=== PATIENT | female | born 1975 | race Caucasian/White ===

== ENCOUNTER 2017-04-12 15:06 | Emergency (ER) | payer MEDICAID ==
--- NOTE | 2017-04-12 18:43 | RADIOLOGY REPORT (SQ) ---
EXAM DESCRIPTION: MRI CERVICAL SPINE WITHOUT COMPLETED DATE/TIME: 04/12/2017 6:31 pm REASON FOR STUDY: fall/hands numb COMPARISON: None. TECHNIQUE: Sagittal and Axial imaging includes T1, T2, STIR and gradient echo sequences. LIMITATIONS: None. FINDINGS: ALIGNMENT: Normal. VERTEBRAE: Intact. BONE MARROW: Reactive endplate changes C4-5 and C6-7. DISCS: Loss of height and T2 signal C4-5, C5-6, C6-7. HARDWARE: None CORD AND BASE OF BRAIN: Base of the brain is unremarkable. There is focal high signal in the cord at the level of C5 best seen on STIR and T2 weighted images. This is likely cord contusion related to trauma. Demyelinating process is in the differential. SOFT TISSUES: No soft tissue masses. C1-C2: No significant spinal stenosis. C2-C3: No significant spinal stenosis or exit foraminal stenosis. C3-C4: No significant spinal stenosis or exit foraminal stenosis. C4-C5: Disc osteophyte complex with central on lateral components. Flattening of the anterior thecal sac. Moderate narrowing of the exit foramina moderate central canal stenosis. C5-C6: Disc osteophyte complex with marked flattening of the anterior thecal sac and obliteration of the CSF spaces. Moderate narrowing of the exit foramina and moderate central canal stenosis. C6-C7: Marked disc osteophyte complex with flattening of the anterior thecal sac and moderate narrowi ng of the exit foramina. Moderate central canal stenosis. C7-T1: No significant spinal stenosis or exit foraminal stenosis. UPPER THORACIC: Incompletely imaged. No significant spinal stenosis or exit foraminal stenosis. OTHER: No other significant finding. IMPRESSION: Exit foraminal narrowing and central canal stenosis at C4-5, C5-6, C6-7. At the level of C5 there is focal high signal in the cord on STIR and T2 weighted images likely relat ed to cord contusion. Demyelinating process in the differential. TECHNICAL DOCUMENTATION: JOB ID: [id number]- All Rights Reserved
--- NOTE | 2017-04-12 19:10 | ER Document Report ---
ED Medical Screen (RME) - General Chief Complaint: Fall Stated Complaint: FALL NECK PAIN Time Seen by Provider: 04/12/17 16:52 Notes: Patient fell today and hit the back of her neck on some stairs. She complains of bilateral hand numbness. MRI is consistent with possible cord contusion. Patient been placed in c-collar. TRAVEL OUTSIDE OF THE [place] IN LAST 30 DAYS: No - Related Data Allergies/Adverse Reactions: No Known Allergies Allergy (Verified 04/12/17 16:46) Past Medical History - Social History Chew tobacco use (# tins/day): No Frequency of alcohol use: None Drug Abuse: None Renal/ Medical History: Denies: Hx Peritoneal Dialysis Past Surgical History: Reports: Hx Section - x 3, Hx Hysterectomy Physical Exam - Vital signs Vitals: Temp Pulse Resp BP Pulse Ox 98.9 F 94 18 135/88 H 97 04/12/17 15:16 04/12/17 15:16 04/12/17 15:16 04/12/17 15:16 04/12/17 15:16 Course - Vital Signs Vital signs: Temp Pulse Resp BP Pulse Ox 98.9 F 94 18 135/88 H 97 04/12/17 15:16 04/12/17 15:16 04/12/17 15:16 04/12/17 15:16 04/12/17 15:16
[2017-04-12] MEDS ORDERED: MORPHINE SULFATE 10 MG/ML INJ IV ONE (20:13)
[2017-04-12] MEDS ORDERED: KETOROLAC TROMETHAMINE INJ/PF 30 MG/1 ML SDV IV ONE (20:13)
--- NOTE | 2017-04-12 20:22 | ER Document Report ---
ED Fall - General Chief Complaint: Fall Stated Complaint: FALL NECK PAIN Time Seen by Provider: 04/12/17 16:52 Notes: The patient is a 41-year-old female who presents after she slipped down 2 stairs and landed directly on her neck. Immediately after the injury, she began to feel numbness and tingling in her bilateral arms. She was feeling weakness in her bilateral arms after the fall that has now improved. She denies LOC, head injury, chest pain, change in bowel or bladder, saddle anesthesia, rash, nausea, vomiting or open wounds. TRAVEL OUTSIDE OF THE [place] IN LAST 30 DAYS: No - Related data Allergies/Adverse Reactions: No Known Allergies Allergy (Verified 04/12/17 16:46) Past Medical History - General Information source: Patient - Social History Smoking Status: Current Every Day Smoker Chew tobacco use (# tins/day): No Frequency of alcohol use: None Drug Abuse: None Family History: Reviewed & Not Pertinent Patient has suicidal ideation: No Patient has homicidal ideation: No Renal/ Medical History: Denies: Hx Peritoneal Dialysis Past Surgical History: Reports: Hx Section - x 3, Hx Hysterectomy Review of Systems - Review of Systems Notes: REVIEW OF SYSTEMS: CONSTITUTIONAL: -fevers, -chills EENT: -eye pain, -difficulty swallowing, -nasal congestion CARDIOVASCULAR:-chest pain, -syncope. RESPIRATORY: -cough, -SOB GASTROINTESTINAL: -abdominal pain, - nausea, -vomiting, -diarrhea GENITOURINARY: -dysuria, -hematuria MUSCULOSKELETAL: -back pain, +neck pain SKIN: -rash or skin lesions. HEMATOLOGIC: -easy bruising or bleeding. LYMPHATIC: -swollen, enlarged glands. NEUROLOGICAL: -altered mental status or loss of consciousness, -headache, + numbness in bilateral arms PSYCHIATRIC: -anxiety, -depression. ALL OTHER SYSTEMS REVIEWED AND NEGATIVE. Physical Exam - Vital signs Vitals: Temp Pulse Resp BP Pulse Ox 98.9 F 94 18 135/88 H 97 04/12/17 15:16 04/12/17 15:16 04/12/17 15:16 04/12/17 15:16 04/12/17 15:16 - Notes Notes: PHYSICAL EXAMINATION: GENERAL: Well-appearing, well-nourished and in no acute distress. HEAD: Atraumatic, normocephalic. EYES: Pupils equal round and reactive to light, extraocular movements intact, sclera anicteric, conjunctiva are normal. ENT: nares patent, oropharynx clear without exudates. Moist mucous membranes. NECK: in C-collar. Midline tenderness. Supple without lymphadenopathy LUNGS: Breath sounds clear to auscultation bilaterally and equal. No wheezes rales or rhonchi. HEART: Regular rate and rhythm without murmurs ABDOMEN: Soft, nontender, normoactive bowel sounds. No guarding, no rebound. No masses appreciated. EXTREMITIES: Normal range of motion, no pitting or edema. No cyanosis. NEUROLOGICAL: Cranial nerves grossly intact. Normal speech, normal gait. 5/5 strength in all 4 extremities. Numbness is bilateral lateral arms. PSYCH: Normal mood, normal affect. SKIN: Warm, Dry, normal turgor, no rashes or lesions noted. Course - Re-evaluation Re-evalutation: 04/12/17 20:23 Pt with spinal cord contusion after fall at level of C5. She has no motor deficits, but does have sensory deficits. 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 Spoke to Dr. [facility] ([facility]) and he recommends speaking to Spine Surgery. 04/12/17 20:[address] Loyd ([facility]). No further recommendations at this time, but will consult [facility] Wilson has accepted patient. Arranging transportation. - Vital Signs Vital signs: Temp Pulse Resp BP Pulse Ox 98.9 F 94 18 135/88 H 97 04/12/17 15:16 04/12/17 15:16 04/12/17 15:16 04/12/17 15:16 04/12/17 15:16 - Diagnostic Test Radiology reviewed: Image reviewed, Reports reviewed Radiology results interpreted by me: MRI C-spine: Exit foraminal narrowing and central canal stenosis at C4-5, C5-6, C6-7. At the level of C5 there is focal high signal in the cord on STIR and T2 weighted images likely related to cord contusion. Demyelinating process in the differential. Discharge - Discharge Clinical Impression: Spinal cord contusion Condition: Stable Disposition: [facility]
[2017-04-12 21:01] LABS: ABSOLUTE BASOPHILS # (AUTO) 0.1 10^3/uL (0.0-0.2); ABSOLUTE EOSINOPHILS # (AUTO) 0.2 10^3/uL (0.0-0.6); ABSOLUTE LYMPHOCYTES (AUTO) 2.1 10^3/uL (0.5-4.7); ABSOLUTE MONOCYTES (AUTO) 0.4 10^3/uL (0.1-1.4); ABSOLUTE NEUT (AUTO) 5.9 10^3/uL (1.7-8.2); BASOPHILS % (AUTO) 1.2 % (0-2); HEMATOCRIT 39.6 % (36.0-47.0); HEMOGLOBIN 13.3 g/dL (12.0-15.5); HGB HCT DIFFERENCE 0.3; LYMPHOCYTES % (AUTO) 24.1 % (13-45); MEAN CORPUSCULAR HEMOGLOBIN 31.2 pg (27.0-33.4); MEAN CORPUSCULAR HGB CONC 33.7 g/dL (32.0-36.0); MEAN CORPUSCULAR VOLUME 93 fl (80-97); MONOCYTES % (AUTO) 4.7 % (3-13); RED BLOOD COUNT 4.28 10^6/uL (3.72-5.28); RED CELL DISTRIBUTION WIDTH 14.2 % (11.5-14.0); WHITE BLOOD COUNT 8.7 10^3/uL (4.0-10.5)
[2017-04-12 21:04] VITALS: BP 147/86
[2017-04-12 21:18] LABS: ALANINE AMINOTRANSFERASE 41 U/L (9-52); ALBUMIN 4.6 g/dL (3.5-5.0); ALKALINE PHOSPHATASE 81 U/L (38-126); ANION GAP 13 (5-19); ASPARTATE AMINO TRANSFERASE 24 U/L (14-36); BILIRUBIN,DIRECT 0.4 mg/dL (0.0-0.4); BILIRUBIN,TOTAL 0.6 mg/dL (0.2-1.3); BLOOD UREA NITROGEN 10 mg/dL (7-20); CALCIUM 9.7 mg/dL (8.4-10.2); CARBON DIOXIDE 24 mmol/L (22-30); CHLORIDE 106 mmol/L (98-107); CREATININE RESULT 0.72 mg/dL (0.52-1.25); GLUCOSE 87 mg/dL (75-110); POTASSIUM 4.2 mmol/L (3.6-5.0); SODIUM 142.7 mmol/L (137-145); TOTAL PROTEIN 7.7 g/dL (6.3-8.2)
== END 2017-04-12 21:31 | disposition short-term general hospital (02) ==
LOC: ER 15:06
DX: S14.155A Other incomplete lesion at C5 level of cervical spinal cord, initial encounter (principal); M54.2 Cervicalgia; M79.601 Pain in right arm; M79.602 Pain in left arm; F17.200 Nicotine dependence, unspecified, uncomplicated; W19.XXXA Unspecified fall, initial encounter
CPT/HCPCS: 99285; 96374; 96375; 36415; 85025; 80053; 72141; L0120; J1885; J2270

== ENCOUNTER 2017-04-18 20:05 | Emergency (ER) | payer MEDICAID ==
[2017-04-18] MEDS ORDERED: MORPHINE SULFATE 10 MG/ML INJ IM ONE (20:27)
[2017-04-18] MEDS ORDERED: DIAZEPAM INJ 10 MG/2 ML DISP.SYRIN IM ONE (20:28)
--- NOTE | 2017-04-18 20:30 | ER Document Report ---
ED Medical Screen (RME) - General Chief Complaint: Neck Problem Stated Complaint: NECK PAIN Time Seen by Provider: 04/18/17 20:22 Mode of Arrival: Wheelchair Information source: Patient TRAVEL OUTSIDE OF THE [place] IN LAST 30 DAYS: No - HPI Patient complains to provider of: Neck pain Notes: 04/18/17 20:29 Patient is a 41-year-old female presenting to the emergency room complaining of neck pain, she had a recent cervical fusion, after trauma which caused a cord compression, she is still wearing a c-collar, and only takes it off for dressing changes, she is unaware of any infectious process going on with her wounds, however she has not visualized them herself, she does report having subjective fever with a temperature of 99 5 in triage area, she states that she has had some vomiting and has been unable to tolerate her pain medication - Related Data Allergies/Adverse Reactions: No Known Allergies Allergy (Verified 04/18/17 20:10) Past Medical History - Social History Chew tobacco use (# tins/day): No Frequency of alcohol use: None Drug Abuse: None Renal/ Medical History: Denies: Hx Peritoneal Dialysis Past Surgical History: Reports: Hx Section - x 3, Hx Hysterectomy, Hx Orthopedic Surgery - cervical fusion - Immunizations Hx Diphtheria, Pertussis, Tetanus Vaccination: Yes - 2016 History of Influenza Vaccine for 04/2017 - 09/2017 Season: Yes Influenza Administration Date for 04/2017 - 09/2017 Season: 04/04/17 Physical Exam - Vital signs Vitals: Temp Pulse Resp BP Pulse Ox 99.5 F 94 18 161/102 H 100 04/18/17 20:13 04/18/17 20:13 04/18/17 20:13 04/18/17 20:13 04/18/17 20:13 Course - Vital Signs Vital signs: Temp Pulse Resp BP Pulse Ox 99.5 F 94 18 161/102 H 100 04/18/17 20:13 04/18/17 20:13 04/18/17 20:13 04/18/17 20:13 04/18/17 20:13
--- NOTE | 2017-04-18 21:51 | RADIOLOGY REPORT (SQ) ---
EXAM DESCRIPTION: CERV SP 4 OR 5 VIEWS COMPLETED DATE/TIME: 04/18/2017 9:25 pm REASON FOR STUDY: pain COMPARISON: 04/12/2017 NUMBER OF VIEWS: Five views. TECHNIQUE: AP, lateral, obliques and odontoid radiographic images acquired of the cervical spine. LIMITATIONS: None. FINDINGS: Postoperative changes from recent anterior fusion of C4-C7 with mild -moderate prevertebra l soft tissue swelling. No soft tissue gas is identified. No acute fracture. Hardware is intact. OTHER: No other significant finding. IMPRESSION: Postoperative changes from recent anterior fusion of C4-C7 with mild -moderate preverteb ral soft tissue swelling. No soft tissue gas is identified. No acute fracture. Hardware is intact. TECHNICAL DOCUMENTATION: JOB ID: [id number] [employer]- All Rights Reserved
[2017-04-19] MEDS ORDERED: HYDROMORPHONE HCL INJ/PF 2 MG/ML AMPULE IM ONE ×2 (00:14→01:43)
[2017-04-19] MEDS ORDERED: PROMETHAZINE HCL INJ 50 MG/1 ML VIAL IM ONE (00:15)
--- NOTE | 2017-04-19 00:15 | ER Document Report ---
ED Neck/Back Problem - General Mode of Arrival: Wheelchair Information source: Patient TRAVEL OUTSIDE OF THE [place] IN LAST 30 DAYS: No - HPI Patient complains to provider of: Pain, Neck Onset: Yesterday Associated symptoms: Other - see notes above - General Chief Complaint: Neck Problem Stated Complaint: NECK PAIN Time Seen by Provider: 04/18/17 20:22 Notes: 41 year old female who had a cervical fusion on 04/14/2017 presents to the ED complaining of posterior neck pain that started yesterday. Patient reports that she has been vomiting since yesterday and has been unable to keep her anti- nausea or pain medications down. Patient explains that her throat feels swollen and that her neck 'feels like she just walked out of surgery.' Patient reports that she felt like she had a fever, but has not taken her temperature. Patient is complaining of dysphagia with food and liquid, but worse with food. Patient has an [place] C-collar and has been following instructions to keep it on at all times except to change dressing. Patient reports numbness and tingling to the right hand, but states this isn't new. Surgeon: Dr. Mccall ([facility]) - Related Data Allergies/Adverse Reactions: No Known Allergies Allergy (Verified 04/18/17 20:10) Past Medical History - General Information source: Patient - Social History Smoking Status: Former Smoker Chew tobacco use (# tins/day): No Frequency of alcohol use: None Drug Abuse: None Family History: Reviewed & Not Pertinent Renal/ Medical History: Denies: Hx Peritoneal Dialysis Past Surgical History: Reports: Hx Section - x 3, Hx Hysterectomy, Hx Orthopedic Surgery - cervical fusion - Immunizations Hx Diphtheria, Pertussis, Tetanus Vaccination: Yes - 2017 Review of Systems - Review of Systems Constitutional: No symptoms reported EENT: See HPI, Throat pain, Difficulty swallowing, Throat swelling Cardiovascular: No symptoms reported Respiratory: No symptoms reported Gastrointestinal: See HPI, Nausea, Vomiting Genitourinary: No symptoms reported Female Genitourinary: No symptoms reported Musculoskeletal: See HPI, Neck pain Skin: No symptoms reported Hematologic/Lymphatic: No symptoms reported Neurological/Psychological: No symptoms reported -: Yes All other systems reviewed and negative Physical Exam - Vital signs Vitals: Temp Pulse Resp BP Pulse Ox 99.5 F 94 18 161/102 H 100 04/18/17 20:13 10/15/17 20:13 04/18/17 20:13 04/18/17 20:13 04/18/17 20:13 - Notes Notes: GENERAL: Alert, interacts well. No acute distress. Appears uncomfortable HEAD: Atraumatic. See neck exam below. EYES: Pupils equal, round, and reactive to light. Extraocular movements intact. ENT: Oral mucosa moist, tongue midline. Patient is not drooling and is able to handle secretions. NECK: Patient is immobilized in an [place] cervical collar. LUNGS: Clear to auscultation bilaterally, no wheezes, rales, or rhonchi. No respiratory distress. No stridor. HEART: Regular rate and rhythm. No murmurs, gallops, or rubs. ABDOMEN: Soft, non-tender. Non-distended. Bowel sounds present in all 4 quadrants. EXTREMITIES: Moves all 4 extremities spontaneously. No edema. No cyanosis. NEUROLOGICAL: Alert and oriented x3. Normal speech. PSYCH: Normal affect, normal mood. SKIN: Warm, dry, normal turgor. No rashes or lesions noted. (BLAKE DALEY) Course - Consults Dr. Owens Time consulted: 00:17 - Re-evaluation Re-evalutation: 04/19/17 01:36 Cervical spine x-ray shows mild to moderate prevertebral swelling, no soft tissue gas, no malalignment, hardware in good position, no fracture. Discussed patient with Dr. Owens the neurosurgeon on-call for Dr. Campos, recommends sitting up while sleeping, staying at least a 30 angle at all times , starting Medrol Dosepak, switching to liquid pain medication and he will put in a message for Dr. Campos's medical affairs director. (DERRICK VIRK) - Vital Signs Vital signs: Temp Pulse Resp BP Pulse Ox 98.5 F 84 22 H 153/95 H 98 04/19/17 02:15 04/19/17 02:15 04/19/17 02:15 04/19/17 02:15 04/19/17 02:15 - Consults Dr. Owens Reason for consultation: 04/19/17 00:17 Dr. Owens, covering for Dr. Mccall, was paged. 04/19/17 00:45 Patient was discussed with Dr. Owens and recommends to keep the patient elevated at or greater than 30 degrees and to inform the patient to sleep sitting up. Dr. Owens also recommends switching to liquid pain medication and will inform Dr. Mccall's medical affairs director to set up a follow up appointment earlier than scheduled. (BLAKE DALEY) Discharge - Discharge Clinical Impression: Postoperative pain Hypertension Qualifiers: Hypertension type: essential hypertension Qualified Code(s): I10 - Essential ( primary) hypertension Condition: Stable Disposition: HOME, SELF-CARE Additional Instructions: Please sleep sitting up, still try and stay at at least a 30 angle at all times. Please return to the emergency department if you have any more difficulty swallowing. Prescriptions: Oxycodone HCl/Acetaminophen [Oxycodone-Acetaminophn 5-325/5] 10 ml PO Q6HP PRN # 200 solution PRN Reason: Methylprednisolone [Medrol Dosepack (4 mg/Tab) 21 Tab/Dosepak] 4 mg PO ASDIR PRN #21 tab.ds.pk PRN Reason: Ondansetron [Zofran Odt 4 mg Tablet] 1 - 2 tab PO Q4H PRN #15 tab.rapdis PRN Reason: For Nausea/Vomiting Scribe Attestation: 04/19/17 03:18 I personally performed the services described in the documentation, reviewed and edited the documentation which was dictated to the scribe in my presence, and it accurately records my words and actions. (DERRICK VIRK) Scribe Documentation - Scribe Written by Ulie:: Blake Daley, Vladimir, 04/19/2017 0111 acting as scribe for :: Brenda
[2017-04-19] MEDS ORDERED: PROMETHAZINE HCL INJ 50 MG/1 ML VIAL ONE (00:28)
[2017-04-19 02:15] VITALS: BP 153/95
== END 2017-04-19 02:19 | disposition home or self-care (01) ==
LOC: ER 20:05
DX: G89.18 Other acute postprocedural pain (principal); M54.2 Cervicalgia; I10 Essential (primary) hypertension; R11.2 Nausea with vomiting, unspecified; Z98.1 Arthrodesis status; Z87.891 Personal history of nicotine dependence; Z90.710 Acquired absence of both cervix and uterus
CPT/HCPCS: 99283; 96372; 72050; J3360; J2270; J1170; J2550